=== PATIENT | male | born 1960 | race Caucasian/White ===

== ENCOUNTER 2019-02-24 18:21 | Emergency (ER) | payer BC, OTHER ==
--- NOTE | 2019-02-24 18:39 | ERPHSYRPT ---
- History of Present Illness Source: patient Exam Limitations: no limitations Timing/Duration: week(s) (1) Cough Quality/Degree: mild, productive cough, sputum Associated Symptoms: fever, cough, nasal congestion, sore throat, No chills, No chest pain/soreness, No dizziness, No earache, No headache, No lightheadedness, No muscle aches, No shortness of breath <JESUSITA SPARROW - Last Filed: 02/24/19 19:15> <MIKEL NESBITT - Last Filed: 02/24/19 19:51> - History of Present Illness Time Seen by Provider: 02/24/19 18:31 Physician History: The patient is a 58-year-old male with a past medical history significant for atrial fibrillation and is status post ablation, cigarette smoking which he smokes a half pack of cigarettes a day, and hypothyroidism presents with a chief complaint of a cough. He reportedly started to spasm nasal congestion over the past week in addition to an intermittent sore throat with a productive cough for which he is now coughing up green sputum. Endorse having a subjective fever but denies chills, shortness of breath, chest pain, nausea, vomiting and headache. 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 he's been taking Corazon-Hawthorn cold and flu over the past couple days with little relief in his symptoms. (JESUSITA SPARROW) Allergies/Adverse Reactions: No Known Drug Allergies Allergy (Verified 02/24/19 18:39) Home Medications: Budesonide/Formoterol Fumarate [Symbicort 160-4.5 Mcg Inhaler] 10.2 gm IH DAILY 02/24/19 [History] Levothyroxine Sodium 25 mcg PO DAILY 02/24/19 [History] Omeprazole 20 mg PO DAILY 02/24/19 [History] Rosuvastatin Calcium [Crestor] 5 mg PO DAILY 02/24/19 [History] - Review of Systems Constitutional: Fever, Other (Subjective fever), No Chills Eyes: No Symptoms, No Discharge, No Eye Pain Ears, Nose, & Throat: Nose Congestion, Throat Pain, No Ear Pain, No Ear Discharge Respiratory: Cough, No Dyspnea, No Dyspnea on Exertion (IVAN), No Wheezing Cardiac: No Chest Pain, No Edema Abdominal/Gastrointestinal: No Symptoms Genitourinary Symptoms: No Symptoms Musculoskeletal: No Symptoms Skin: No Symptoms Neurological: No Symptoms Psychological: No Symptoms Endocrine: No Symptoms Hematologic/Lymphatic: No Symptoms Immunological/Allergic: No Symptoms All Other Systems: Reviewed and Negative <JESUSITA SPARROW - Last Filed: 02/24/19 19:15> - Physical Exam General Appearance: no apparent distress, alert Eye Exam: PERRL/EOMI, eyes nml inspection, No scleral icterus, No pale conjunctivae, No EOM palsy/anisocoria Ears, Nose, Throat Exam: normal ENT inspection, TMs normal, pharynx normal, moist mucous membranes, No pharyngeal erythema, No tonsillar exudate Neck Exam: normal inspection, non-tender, supple, No JVD Respiratory Exam: lungs clear, airway intact, diminished breath sounds, No respiratory distress, No rhonchi, No wheezing Cardiovascular Exam: regular rate/rhythm, normal heart sounds, normal peripheral pulses, capillary refill <2 sec Gastrointestinal/Abdomen Exam: soft Rectal Exam: deferred Back Exam: normal inspection Extremity Exam: normal inspection, No calf tenderness, No deformities, No pedal edema, No swelling, No tenderness Neurologic Exam: alert, oriented x 3, cooperative, normal mood/affect Skin Exam: normal color Lymphatic Exam: No adenopathy SpO2 Interpretation: normal O2 Delivery: Room Air <JESUSITA SPARROW - Last Filed: 02/24/19 19:15> - Nursing Vital Signs Nursing Vital Signs: Initial Vital Signs Temperature 97.9 F 02/24/19 18:23 Pulse Rate 89 02/24/19 18:23 Respiratory Rate 24 02/24/19 18:23 Blood Pressure 140/78 02/24/19 18:23 O2 Sat by Pulse Oximetry 95 02/24/19 18:23 Pain Scale Pain Intensity 0 - Course Nursing assessment & vital signs reviewed: Yes <JESUSITA SPARROW - Last Filed: 02/24/19 19:15> - Radiology Exams Chest X-ray Interpretation: Interpreted by me, Negative (chest x-ray showed chronic changes no definite acute infiltrates) <MIKEL NESBITT - Last Filed: 02/24/19 19:51> Ordered Tests: Active Orders 24 hr Category Date Time Status CHEST 2 VIEWS (PA AND LAT) Stat Exams 02/24/19 19:29 Taken - Progress Air Movement: good Blood Culture(s) Obtained: No Antibiotics given: No <JESUSITA SPARROW - Last Filed: 02/24/19 19:15> - Progress Progress: improved Air Movement: good Antibiotics given: Yes <LAZMIKEL - Last Filed: 02/24/19 19:51> - Departure Departure Disposition: Home <JESUSITA SPARROW - Last Filed: 02/24/19 19:15> - Departure Departure Disposition: Home Critical Care Time: No <MARTHALENAMIKEL - Last Filed: 02/24/19 19:51> - Departure Clinical Impression: COPD (chronic obstructive pulmonary disease) with acute bronchitis Condition: Stable Referrals: BENITO JARA MD [Primary Care Provider] - Instructions: Cough, Runny Nose, and the Common Cold (DC), Sinusitis, Adult (DC ), Chronic Obstructive Pulmonary Disease Prescriptions: Albuterol 8 gm Mdi Hfa [Ventolin Hfa MDI] 8 gm IH Q4H #1 hfa.[id number] Doxycycline Hyclate 100 mg [Vibramycin 100 MG] 100 mg PO BID #14 tab
[2019-02-24 20:09] VITALS: BP 115/79; PULSE 88; O2SAT 93
--- NOTE | 2019-02-25 08:49 | XRAY ---
Indication: Cough and congestion. Comparison: None PA/lateral chest hyperinflated and clear. Heart and mediastinal structures within normal limits. Bony thorax intact with mild degenerative changes. Impression: Nonacute hyperinflated chest.
== END 2019-02-24 20:09 | disposition home or self-care (01) ==
LOC: ED 18:21
DX: J44.9 Chronic obstructive pulmonary disease, unspecified (principal); R50.9 Fever, unspecified; R05 Cough; J02.9 Acute pharyngitis, unspecified; R09.81 Nasal congestion; Z79.899 Other long term (current) drug therapy
CPT/HCPCS: 71046; 99283

== ENCOUNTER 2019-05-06 11:15 | Day surgery (SDC) | payer OTHER ==
[2019-05-06] MEDS ORDERED: Depo-Medrol 40 MG/ML IM ONE (11:16)
[2019-05-06] MEDS ORDERED: Xylocaine 1% Vial 30 ML PF IJ ONE (11:16)
[2019-05-06] MEDS ORDERED: Sodium Chloride 0.9(Preservative Free) 10 ML IJ ONE (11:16)
--- NOTE | 2019-05-06 14:21 | XRAY ---
Indication: Right L4-S1 transforaminal ESHA. Intraoperative fluoroscopy was provided for 35 seconds. 5 digital spot images submitted for interpretation demonstrates posterior needle tips projecting over the expected course of the right L4 and L5 nerve roots. Small amount of contrast injected for needle tip placement. Correlate with intraoperative findings/report.
--- NOTE | 2019-05-06 14:23 | XRAY ---
35 seconds fluoroscopy time in surgery for right L4-S1 transforaminal ESHA.
== END 2019-05-06 13:51 | disposition home or self-care (01) ==
LOC: SDC-PAIN 11:15
PROVIDERS: ATTEND Psychiatry & Neurology Pain Medicine
DX: M54.16 Radiculopathy, lumbar region (principal); I48.91 Unspecified atrial fibrillation; Z79.899 Other long term (current) drug therapy
CPT/HCPCS: 64483; 64484; 72100; 77003; J1030; J2001; Q9966

== ENCOUNTER 2019-05-27 07:55 | Day surgery (SDC) | payer OTHER ==
[2019-05-27] MEDS ORDERED: Sodium Chloride 0.9% 10 ML FLUSH Syringe IJ ONE (07:56)
[2019-05-27] MEDS ORDERED: Depo-Medrol 40 MG/ML IM ONE (07:56)
[2019-05-27] MEDS ORDERED: Ketamine HCl 50 MG/ML ONE (09:39)
[2019-05-27] MEDS ORDERED: DIPRIVAN 200 MG/20 ML IV ONE (09:39)
--- NOTE | 2019-05-27 10:38 | XRAY ---
Indication: Right L4-S1 transforaminal ESHA. Intraoperative fluoroscopy was provided for 29 seconds. 4 digital spot images submitted for interpretation demonstrates posterior needle tips projecting over the expected course of the right L4 and L5 nerve roots. Small amount of contrast injected for needle tip placement. Correlate with intraoperative findings/report.
[2019-05-27] MEDS ORDERED: Lactated Ringers 1,000 ML IV ONE (11:47)
--- NOTE | 2019-05-27 11:57 | XRAY ---
29 seconds fluoroscopy time in surgery for right L4-S1 transforaminal ESHA.
== END 2019-05-27 10:10 | disposition home or self-care (01) ==
LOC: SDC-PAIN 07:55
PROVIDERS: ATTEND Psychiatry & Neurology Pain Medicine
DX: M54.16 Radiculopathy, lumbar region (principal); I48.91 Unspecified atrial fibrillation; Z79.899 Other long term (current) drug therapy
CPT/HCPCS: 64483; 64484; 72100; 77003; J1030; J2704; Q9966

== ENCOUNTER 2019-11-04 11:55 | Day surgery (SDC) | payer OTHER ==
[2019-11-04] MEDS ORDERED: Sodium Chloride 0.9(Preservative Free) 10 ML IJ ONE (11:56)
[2019-11-04] MEDS ORDERED: Depo-Medrol 40 MG/ML IM ONE (11:56)
[2019-11-04] MEDS ORDERED: DIPRIVAN 200 MG/20 ML IV ONE (13:27)
[2019-11-04] MEDS ORDERED: Ketamine HCl 50 MG/ML ONE (13:27)
--- NOTE | 2019-11-04 14:27 | XRAY ---
Indication: Left L4-S1 transforaminal ESHA. Intraoperative fluoroscopy was provided for 1 minute 12 seconds. 4 digital spot images submitted for interpretation demonstrates posterior needle tips projecting over the expected left L4 and L5 nerve roots. Small amount of contrast injected for needle tip placement. Correlate with intraoperative findings/report. Incidental bilateral L3-L4 posterior fusion hardware and intervertebral spacer.
[2019-11-04] MEDS ORDERED: Lactated Ringers 1,000 ML IV ONE (15:25)
--- NOTE | 2019-11-04 17:17 | XRAY ---
1 minute 12 seconds of fluoroscopy was used in surgery for a left L4-L5 and L5-S1 transforaminal ESHA.
== END 2019-11-04 14:03 | disposition home or self-care (01) ==
LOC: SDC-PAIN 11:55
PROVIDERS: ATTEND Psychiatry & Neurology Pain Medicine
DX: M54.16 Radiculopathy, lumbar region (principal); I48.91 Unspecified atrial fibrillation; Z79.899 Other long term (current) drug therapy
CPT/HCPCS: 64483; 64484; 72100; 77003; J1030; J2704; Q9966

== ENCOUNTER 2019-11-25 10:14 | Day surgery (SDC) | payer OTHER ==
[~2019-11-25 10:14] MED LIST: DIPRIVAN 200 MG/20 ML IV ONE; Ketamine HCl 50 MG/ML ONE; Versed 2 MG/2 ML Injection ONE
[2019-11-25] MEDS ORDERED: Decadron 4 MG INJ IV ONE (10:15)
[2019-11-25] MEDS ORDERED: Sodium Chloride 0.9(Preservative Free) 10 ML IJ ONE (10:15)
[2019-11-25] MEDS ORDERED: Xylocaine 1% Vial 30 ML PF IJ ONE (10:15)
[2019-11-25] MEDS ORDERED: Depo-Medrol 40 MG/ML IM ONE (10:15)
[2019-11-25] MEDS ORDERED: TORAdol 30 mg Injection ONE (12:24)
--- NOTE | 2019-11-25 13:29 | XRAY ---
Indication: Left piriformis injection. Intraoperative fluoroscopy was provided for 40 seconds. Single digital spot image submitted for interpretation demonstrates posterior needle tip projecting over the expected left piriformis muscle. Small amount of contrast injected for needle tip placement. Correlate with intraoperative findings/report.
--- NOTE | 2019-11-25 13:29 | XRAY ---
Indication: Left L4-S1 transforaminal ESHA. Intraoperative fluoroscopy was provided for 35 seconds. 4 digital spot images submitted for interpretation demonstrates posterior needle tips projecting over the expected left L4 and L5 nerve roots. Small amount of contrast injected for needle tip placement. Correlate with intraoperative findings/report.
--- NOTE | 2019-11-25 14:06 | XRAY ---
40 seconds of fluoroscopy was used in surgery for left piriformis injection.
--- NOTE | 2019-11-25 14:16 | XRAY ---
35 seconds of fluoroscopy was used in surgery for a left L4-L5 and L5-S1 transforaminal ESHA.
[2019-11-25] MEDS ORDERED: Lactated Ringers 1,000 ML IV ONE (15:50)
== END 2019-11-25 12:25 | disposition home or self-care (01) ==
LOC: SDC-PAIN 10:14
PROVIDERS: ATTEND Psychiatry & Neurology Pain Medicine
DX: M54.16 Radiculopathy, lumbar region (principal); M79.18 Myalgia, other site; I48.91 Unspecified atrial fibrillation; Z79.899 Other long term (current) drug therapy
CPT/HCPCS: 20552; 64483; 64484; 72020; 72100; 77002; 77003; J1030; J1100; J1885; J2001; J2250; J2704; Q9966